=== PATIENT | female | born 1950 | race Caucasian/White ===

== ENCOUNTER → 2016-08-01 | Day surgery (SDC) | payer BC ==
[2016-07-27 07:48] VITALS: Ht 170.2 cm; Wt 75.0 kg
[~2016-08-01] VITALS: Ht 170.2 cm; Wt 75.0 kg
[~2016-08-01] MED LIST: ATOR10TA88 PO; ATROPINE SULFATE 0.1 MG/ML 5ML SYR IV PRN; COEN100C7 PO; EpHEDrine SULFATE INJ 50 MG/ML AMP IV PRN; GLUCTAB7 PO; LIDOCAINE HCL 2% 2 ML VIAL (20MG/ML) ONE; MISCCAP80 PO; MULT-428 PO; MULT-506 PO; OMEG10007 PO; PROPOFOL IV EMULSION 10 MG/ML 20 ML VIAL IV ONE; SODIUM CHLORIDE 0.9% 500ML 500 ML IV ONE
--- NOTE | 2016-08-01 14:07 | Endo History and Physical ---
History & Physical Date of Service: Aug 01, 2016. Chief Complaint: Screening Referring Physician: CHARO History of Present Illness 65 yo CF who presents for screening colonoscopy. Past Surgical History Hx Cardiac Surgery: No Hx Internal Defibrillator: No Hx Pacemaker: No Hx Abdominal Surgery: Yes (APPY AT AGE 8) Hx of Implantable Prosthesis: No Hx Post-Op Nausea and Vomiting: Yes Hx Cancer Surgery: No Hx Thoracic Surgery: No Hx Orthopedic: No Hx Urinary Tract Surgery: No Family History None Social History Smoking Status: Never Smoker Hx Substance Use: No Hx Alcohol Use: Yes (WINE WITH DINNER) Allergies Coded Allergies: Codeine (Verified Adverse Reaction, Unknown, NAUSEA, 08/01/16) Current Medications Reported Home Medications Medications Dose Route/Sig Max Daily Dose Days Date Category Glucosamine Chondroitin (Uxdlscvwhjw-Tclpzhlrqif-Ial C-) 1 Tab Tab 1 Tab PO QAM 07/27/16 Reported Probiotic (Probiotic Product) 1 Cap Cap 1 Cap PO QPM 07/27/16 Reported Macuvite (Multiple Vitamins W/ Minerals) 1 Tab Tab 1 Tab PO QAM 07/27/16 Reported [place]-3 (Fish Oil) 1 Ea Cap 1 Cap PO QAM 07/27/16 Reported Coq10 (Coenzyme Q10 (Ubidecarenone)) 100 Mg Cap 1 Tab PO QAM 07/27/16 Reported Multivitamin (Multivitamins) Tab 1 Tab PO QAM 07/27/16 Reported Lipitor (Atorvastatin Calcium) 10 Mg Tab 10 Mg PO QPM 07/27/16 Reported Vital Signs Weight (Kilograms): 75 Height (Feet): 5 Height (Inches): 7 Date Time Temp Pulse Resp B/P Pulse Ox O2 Delivery O2 Flow Rate FiO2 08/01/16 13:36 36.5 90 18 148/81 96 Room Air Physical Exam General Appearance: WD/WN, no apparent distress Respiratory/Chest: Auscultation: breath sounds normal Cardiovascular: Heart Auscultation: RRR Abdomen: Bowel Sounds: normal Inspection & Palpation: soft, non-distended, no tenderness, guarding & rebound Assessment and Plan Assessment: 65 yo CF who presents for screening colonoscopy. Plan: Proceed with colonoscopy.
--- NOTE | 2016-08-01 14:35 | GI REPORT ---
Procedure Date: 08/01/2016 1:57 PM Procedure: Colonoscopy Indications: High risk colon cancer surveillance: Ulcerative pancolitis, High risk colon cancer surveillance: Ulcerative pancolitis of 8 (or more) years duration Medicines: Monitored Anesthesia Care Complications: No immediate complications. Estimated Blood Loss: Estimated blood loss: none. Procedure: Pre-Anesthesia Assessment: - Prior to the procedure, a History and Physical was performed, and patient medications and allergies were reviewed. The patient's tolerance of previous anesthesia was also reviewed. The risks and benefits of the procedure and the sedation options and risks were discussed with the patient. All questions were answered, and informed consent was obtained. Prior Anticoagulants: The patient has taken no previous anticoagulant or antiplatelet agents. ASA Grade Assessment: II - A patient with mild systemic disease. After reviewing the risks and benefits, the patient was deemed in satisfactory condition to undergo the procedure. After I obtained informed consent, the scope was passed under direct vision. Throughout the procedure, the patient's blood pressure, pulse, and oxygen saturations were monitored continuously. The scope was introduced through the anus and advanced to the terminal ileum. The colonoscopy was performed without difficulty. The patient tolerated the procedure well. The quality of the bowel preparation was good. The terminal ileum, ileocecal valve, appendiceal orifice, and rectum were photographed. Findings: Inflammation characterized by erythema and loss of vascularity was found in a continuous and circumferential pattern from the rectum to the cecum. This was mild in severity. Biopsies were taken with a cold forceps for histology. Multiple small-mouthed diverticula were found in the sigmoid colon. Non-bleeding internal hemorrhoids were found during retroflexion. The hemorrhoids were small. Impression: - Inflammation was found from the rectum to the cecum secondary to pancolitis ulcerative colitis. Biopsied. - Diverticulosis in the sigmoid colon. - Non-bleeding internal hemorrhoids. Recommendation: - Resume previous diet. - Continue present medications. - Repeat colonoscopy for surveillance based on pathology results. - Return to primary care physician as previously scheduled. Paulie Mena DO 08/01/2016 2:34:15 PM This report has been signed electronically. Note Initiated On: 08/01/2016 1:57 PM
--- NOTE | 2016-08-01 14:36 | Discharge Instructions ---
Endoscopy Patient Instructions Date / Procedure(s) Performed Aug 01, 2016. Colonoscopy Allergy Information Coded Allergies: Codeine (Verified Adverse Reaction, Unknown, NAUSEA, 08/01/16) Discharge Date / Findings Aug 01, 2016. Ulcerative pancolitis s/p biopsies Diverticulosis Internal hemorrhoids Medication Instructions OK to resume all medications today as prescribed. Reported Home Medications Medications Dose Route/Sig Max Daily Dose Days Date Category Glucosamine Chondroitin (Nirfyzuipkd-Kzngvtjksgf-Wxz C-) 1 Tab Tab 1 Tab PO QAM 07/27/16 Reported Probiotic (Probiotic Product) 1 Cap Cap 1 Cap PO QPM 07/27/16 Reported Macuvite (Multiple Vitamins W/ Minerals) 1 Tab Tab 1 Tab PO QAM 07/27/16 Reported [place]-3 (Fish Oil) 1 Ea Cap 1 Cap PO QAM 07/27/16 Reported Coq10 (Coenzyme Q10 (Ubidecarenone)) 100 Mg Cap 1 Tab PO QAM 07/27/16 Reported Multivitamin (Multivitamins) Tab 1 Tab PO QAM 07/27/16 Reported Lipitor (Atorvastatin Calcium) 10 Mg Tab 10 Mg PO QPM 07/27/16 Reported Provider Instructions Activity Restrictions - No exercising or heavy lifting for 24 hours. - Do not drink alcohol the day of the procedure. - Do not drive a car or operate machinery until the day after the procedure. - Do not make any important decisions or sign important papers in 24 hours after the procedure. Following Day: - Return to full activity which may include returning to work/school. Diet Start your diet with liquids and light foods (jello, soup, juice, toast). Then eat your usual diet if not nauseated. Treatment For Common After Affects For mild abdominal pain, bloating, or excessive gas: - Rest - Eat lightly - Lie on right side Follow-Up Information Follow-up with CHARO as scheduled Anesthesia Information What You Should Know You have had a procedure that required some medicine to reduce anxiety and discomfort. This treatment is called moderate sedation. After receiving the treatment, you may be sleepy, but you will be able to breathe on your own. The effects of the treatment may last for several hours. Follow these instructions along with Activity/Diet recommendations noted above: * Do NOT do anything where dizziness or clumsiness would be dangerous. * Rest quietly at home today, then you can be up and about tomorrow. * Have a responsible person stay with you the rest of today. * You may have had an I.V. today. If so, you may take the dressing off later today. Recommendations Call your doctor if: * Trouble breathing * Continuous vomiting for more than 24 hours * Temperature above 101 degrees * Severe abdominal pain or bloating * Pain not relieved by pain medicine ordered * There is increased drainage or redness from any incision * A large amount of rectal bleeding greater than 2-3 tablespoons. (If you had a polyp/s removed or have hemorrhoids, a small amount of blood - from the rectum is to be expected.) * You have any unanswered questions or concerns. IN THE EVENT OF A SERIOUS EMERGENCY, GO TO THE NEAREST EMERGENCY ROOM Your discharge instructions were prepared by provider Paulie Mena. Patient Instructions Signature Page Stephanie Tyson Patient (or Guardian) Signature/Date: I have read and understand the instructions given to me by my caregivers. Caregiver/RN/Doctor Signature/Date: The above-named patient and/or guardian has received patient instructions on this date. + Original Patient Signature Page (only) stays with chart. Please make copy for patient.
--- NOTE | 2016-08-01 14:51 | Anesthesiology Progress Note ---
Anesthesia Post Op Note Date & Time Aug 01, 2016 at 14:51 Vital Signs Pain Intensity: 0 Vital Signs Past 12 Hours Date Time Temp Pulse Resp B/P Pulse Ox O2 Delivery O2 Flow Rate FiO2 08/01/16 14:43 76 16 138/74 96 Room Air 08/01/16 14:28 84 16 126/70 97 Room Air 08/01/16 13:36 36.5 90 18 148/81 96 Room Air Notes Mental Status: alert / awake / arousable, participated in evaluation Pt Amnestic to Procedure: Yes Nausea / Vomiting: adequately controlled Pain: adequately controlled Airway Patency, RR, SpO2: stable & adequate BP & HR: stable & adequate Hydration State: stable & adequate Anesthetic Complications: no major complications apparent
[2016-08-01 14:58] VITALS: BP 144/83; PULSE 84; O2SAT 98
== END | disposition home or self-care (01) ==
LOC: C.GI 13:16
PROVIDERS: ATTEND Internal Medicine
DX: Z12.11 Encounter for screening for malignant neoplasm of colon (principal); K51.00 Ulcerative (chronic) pancolitis without complications; K57.30 Diverticulosis of large intestine without perforation or abscess without bleeding; K64.8 Other hemorrhoids

== ENCOUNTER → 2016-12-09 | Outpatient (CLI) | payer BC ==
[~2016-12-09] MED LIST changes: +ATOR10TA82 PO; -ATOR10TA88 PO; -ATROPINE SULFATE 0.1 MG/ML 5ML SYR IV PRN; -EpHEDrine SULFATE INJ 50 MG/ML AMP IV PRN; -LIDOCAINE HCL 2% 2 ML VIAL (20MG/ML) ONE; -PROPOFOL IV EMULSION 10 MG/ML 20 ML VIAL IV ONE; -SODIUM CHLORIDE 0.9% 500ML 500 ML IV ONE
[2016-12-09 09:31] LABS: BASO % 0.4 %; BASO ABS # 0.03 K/uL (0-0.2); COMPLETE YES; EOS % 0.8 %; HEMATOCRIT 37.4 % (37-47); IG% 0.1 %; LYMPH % 27.5 %; LYMPH ABS # 2.09 K/uL (1.2-3.4); MEAN CORPUSCULAR HGB CONC 33.7 g/dl (32-36); MEAN PLATELET VOLUME 10.3 fL (7.4-10.4); MONO % 9.9 %; NEUT % 61.3 %; PLATELET COUNT 286 K/uL (130-400); RED BLOOD COUNT 4.35 M/uL (4.2-5.4)
[2016-12-09 09:38] LABS: URINE APPEARANCE CLEAR (CLEAR); URINE BILIRUBIN NEG (NEG); URINE COLOR YELLOW; URINE NITRITE NEG (NEG); URINE SPECIFIC GRAVITY 1.025 (1.000-1.030); UROBILINOGEN NEG (NEG)
[2016-12-09 09:46] LABS: MANUAL MICROSCOPIC REQUIRED? NO; REVIEW REQ? NO
[2016-12-09 09:52] LABS: ALT/SGPT 26 U/L (12-78); AST/SGOT 14 U/L (15-37); BLOOD UREA NITROGEN 17 mg/dl (7-18); BUN/CREATININE RATIO 26.9 (10-20); CALCIUM 8.5 mg/dl (8.5-10.1); CARBON DIOXIDE 29 mmol/L (21-32); CHLORIDE 111 mmol/L (98-107); CREATININE 0.62 mg/dl (0.60-1.20); GLUCOSE 93 mg/dl (70-99); POTASSIUM 3.9 mmol/L (3.5-5.1); SODIUM 145 mmol/L (136-145)
[2016-12-09 10:00] LABS: ALKALINE PHOSPHATASE 72 U/L (45-117); C-REACTIVE PROTEIN 0.54 mg/dl (0-0.29); CHOLESTEROL 179 mg/dl (0-200); CHOLESTEROL/HDL RATIO 1.7; HDL CHOLESTEROL 103 mg/dl; LDL CHOLESTEROL CALCULATED 66 mg/dl; THYROID STIMULATING HORMONE 0.672 uIu/ml (0.300-4.500); TRIGLYCERIDES 49 mg/dl (0-150); VERY LOW DENSITY LIPOPROT CALC 10 mg/dl
[2016-12-09 10:07] LABS: ESTIMATED AVERAGE GLUCOSE 108 mg/dl; HA1C FLAG Normal (Normal)
--- NOTE | 2016-12-19 09:50 | CODING QUERY MEDICAL NECESSITY ---
SUPPORTING DIAGNOSIS NEEDED Dr. Dick, A supporting diagnosis is required for the test/procedure performed on this patient in order for us to be reimbursed by the patient's insurance. Please provide a supporting diagnosis for the following test/procedure listed below next to the test name along with your signature. *If there is no additional diagnosis for this patient that would support the following test/procedure please document that below next to the test/procedure. Test(s)/Procedure(s) that require a supporting diagnosis: * 35052 GLYCATED HEMOGLOBIN DIAGNOSIS: DATE OF SERVICE: 12/09/16 Provider Signature: Date: Thank you Devin Gurbbs [facility] Information Management Once completed, please kindly fax back to [phone] For questions please call [phone]
== END | disposition home or self-care (01) ==
LOC: C.LAB 07:01
PROVIDERS: ATTEND Internal Medicine
DX: Z11.59 Encounter for screening for other viral diseases (principal); K51.00 Ulcerative (chronic) pancolitis without complications; E78.00 Pure hypercholesterolemia, unspecified; R73.9 Hyperglycemia, unspecified

== ENCOUNTER → 2017-01-24 | Outpatient (CLI) | payer BC ==
[~2017-01-24] MED LIST changes: -ATOR10TA82 PO; +ATOR10TA88 PO
[2017-01-28 18:30] LABS: IGA SERUM 246 mg/dL (81-463); TIS TRANS IGA 1 U/mL (<4)
== END | disposition home or self-care (01) ==
LOC: C.LAB1850 16:43
PROVIDERS: ATTEND Internal Medicine
DX: K51.00 Ulcerative (chronic) pancolitis without complications (principal)

== ENCOUNTER → 2017-09-12 | Outpatient (CLI) | payer BC ==
[~2017-09-12] MED LIST changes: +ATOR10TA82 PO; -ATOR10TA88 PO; -GLUCTAB7 PO; +TURM500C2 PO
--- NOTE | 2017-09-12 09:40 | DIAGNOSTIC IMAGING REPORT ---
SINUSES MIN 3 VIEWS ROUTINE HISTORY: 66 years-old Female Sinusitis acute sinusitis COMPARISON: None available TECHNIQUE: 4 views of the paranasal sinuses FINDINGS: Plate and screw fusion hardware is noted projecting over the bilateral maxillary bones. The paranasal sinuses and mastoid air cells appear generally well aerated. No acute facial bone fracture or dislocation identified. No opaque foreign body. Degenerative changes are seen within the imaged cervical spine. IMPRESSION: No significant paranasal sinus disease identified. The above report was generated using voice recognition software. It may contain grammatical, syntax or spelling errors. Electronically signed by: Willy Paulino M.D. 09/12/2017 9:39 AM Dictated Date/Time: 09/12/2017 9:37 AM
[2017-09-12 11:04] LABS: INFLUENZA A PCR Neg for Influ A (NEG); INFLUENZA B PCR Neg for Influ B (NEG)
== END | disposition home or self-care (01) ==
LOC: C.RAD1850 09:11
PROVIDERS: ATTEND Internal Medicine
DX: J32.9 Chronic sinusitis, unspecified (principal); R50.9 Fever, unspecified

== ENCOUNTER → 2017-10-28 | Outpatient (CLI) | payer BC ==
[2017-10-28 07:37] LABS: BASO % 1.3 %; BASO ABS # 0.08 K/uL (0-0.2); EOS % 8.5 %; EOS ABS # 0.51 K/uL (0-0.5); HEMATOCRIT 39.5 % (37-47); HEMOGLOBIN 13.6 g/dL (12.0-16.0); IG# 0.01 K/uL (0.00-0.02); LYMPH % 36.4 %; LYMPH ABS # 2.19 K/uL (1.2-3.4); MEAN CELL VOLUME 83.9 fL (80-100); MEAN CORPUSCULAR HEMOGLOBIN 28.9 pg (25-34); MEAN CORPUSCULAR HGB CONC 34.4 g/dl (32-36); MEAN PLATELET VOLUME 9.6 fL (7.4-10.4); MONO % 13.5 %; MONO ABS # 0.81 K/uL (0.11-0.59); NEUT % 40.1 %; NEUT ABS # 2.41 K/uL (1.4-6.5); PLATELET COUNT 299 K/uL (130-400); RED CELL DISTRIBUTION WIDTH CV 14.5 % (11.5-14.5); RED CELL DISTRIBUTION WIDTH SD 44.7 fL (36.4-46.3); WHITE BLOOD COUNT 6.01 K/uL (4.8-10.8)
[2017-10-28 07:59] LABS: HEMOGLOBIN A1C 5.7 % (4.5-5.6)
[2017-10-28 08:05] LABS: ALT/SGPT 28 U/L (12-78); AST/SGOT 20 U/L (15-37); BLOOD UREA NITROGEN 12 mg/dl (7-18); CALCIUM 9.1 mg/dl (8.5-10.1); CARBON DIOXIDE 26 mmol/L (21-32); CHOLESTEROL 178 mg/dl (0-200); CREATININE 0.71 mg/dl (0.60-1.20); GLUCOSE 96 mg/dl (70-99); POTASSIUM 4.1 mmol/L (3.5-5.1); SODIUM 140 mmol/L (136-145)
[2017-10-28 08:15] LABS: LDL CHOLESTEROL CALCULATED 100 mg/dl
== END | disposition home or self-care (01) ==
LOC: C.LAB 07:07
PROVIDERS: ATTEND Internal Medicine
DX: E78.00 Pure hypercholesterolemia, unspecified (principal)

== ENCOUNTER → 2018-02-14 | Outpatient (CLI) | payer BC ==
[~2018-02-14] MED LIST changes: +MESA800T5 PO; +PRED10TA PO
[2018-02-14 09:38] LABS: BASO % 0.3 %; BASO ABS # 0.04 K/uL (0-0.2); EOS % 2.2 %; EOS ABS # 0.31 K/uL (0-0.5); HEMATOCRIT 35.3 % (37-47); HEMOGLOBIN 11.5 g/dL (12.0-16.0); IG# 0.08 K/uL (0.00-0.02); LYMPH % 32.3 %; LYMPH ABS # 4.58 K/uL (1.2-3.4); MEAN CELL VOLUME 85.3 fL (80-100); MEAN CORPUSCULAR HEMOGLOBIN 27.8 pg (25-34); MEAN CORPUSCULAR HGB CONC 32.6 g/dl (32-36); MEAN PLATELET VOLUME 9.5 fL (7.4-10.4); MONO % 11.7 %; MONO ABS # 1.66 K/uL (0.11-0.59); NEUT % 52.9 %; NEUT ABS # 7.51 K/uL (1.4-6.5); PLATELET COUNT 305 K/uL (130-400); RED CELL DISTRIBUTION WIDTH SD 52.9 fL (36.4-46.3); WHITE BLOOD COUNT 14.18 K/uL (4.8-10.8)
[2018-02-14 10:01] LABS: ALBUMIN 3.2 gm/dl (3.4-5.0); ALKALINE PHOSPHATASE 83 U/L (45-117); ALT/SGPT 42 U/L (12-78); AST/SGOT 29 U/L (15-37); BLOOD UREA NITROGEN 15 mg/dl (7-18); CALCIUM 8.6 mg/dl (8.5-10.1); CARBON DIOXIDE 26 mmol/L (21-32); CREATININE 0.73 mg/dl (0.60-1.20); GLUCOSE 74 mg/dl (70-99); POTASSIUM 3.3 mmol/L (3.5-5.1); SODIUM 140 mmol/L (136-145); TOTAL PROTEIN 7.2 gm/dl (6.4-8.2)
[2018-02-16 11:18] LABS: QUANTIF MITOGEN-NIL 9.85 IU/ML; QUANTIFERON NEGATIVE (NEGATIVE); QUANTIFERON NIL 0.03 IU/ML
== END | disposition home or self-care (01) ==
LOC: C.LAB 07:37
PROVIDERS: ATTEND Registered Nurse
DX: K51.00 Ulcerative (chronic) pancolitis without complications (principal)